=== PATIENT | female | born 1940 | race Caucasian/White ===

== ENCOUNTER → 2023-06-05 13:26 | Outpatient (REF) | payer OTHER, SELFPAY | LOC: RAD 13:26 | PROVIDERS: ATTENDING PHYSICIAN Surgery Vascular Surgery; FAMILY PHYSICIAN Family Medicine | DX: I72.8 Aneurysm of other specified arteries (principal) | CPT/HCPCS: 74174; Q9967 ==

== ENCOUNTER 2024-07-14 14:49 | Emergency (ER) | payer OTHER, SELFPAY ==
[2024-07-14 15:04] VITALS: BP 193/94
[2024-07-14 15:30] LABS: % Basophils 0.8 % (0-2); % Eosinophils 1.7 % (0-6); % Immature Granulocytes 0.2 % (0-0.5); % Lymphocytes 26.9 % (20.5-51.1); % Neutrophils 64.4 % (42.2-75.2); Absolute Basophils 0.1 10^3/uL (0-0.2); Absolute Eosinophils 0.1 10^3/uL (0-0.7); Absolute Lymphocytes 2.3 10^3/uL (1.2-3.4); Absolute Monocytes 0.5 10^3/uL (0.1-0.6); Absolute Neutrophils 5.4 10^3/uL (1.4-6.5); Hematocrit 44.8 % (37.0-47.0); Hemoglobin 15.1 g/dL (12.0-16.0); Mean Corp Hgb Conc. 33.7 g/dL (33.0-37.0); Mean Corpuscular Hgb 30.6 pg (27.0-31.0); Mean Corpuscular Volume 90.9 fL (81.0-99.0); Mean Platelet Volume 9.1 fL (7.4-10.4); Nucleated Red Blood Cells % 0 %; Platelet Count 329 10^3/uL (130-400); Red Blood Cell Count 4.93 10^6/uL (4.20-5.40); Red Cell Dist. Width 12.7 % (11.5-14.5); White Blood Cell Count 8.4 10^3/uL (4.8-10.8)
[2024-07-14 15:44] LABS: ALT (SGPT) 15 U/L (0-35); AST (SGOT) 23 U/L (14-36); Alkaline Phosphatase 62 U/L (38-126); Blood Urea Nitrogen 13 mg/dl (7-17); Calcium 9.9 mg/dl (8.4-10.2); Carbon Dioxide 27 mmol/L (22-30); Chloride 111 mmol/L (98-107); Glucose 106 mg/dl (70-99); Potassium 4.5 mmol/L (3.5-5.1); Sodium 146 mmol/L (135-145); Total Bilirubin 1.6 mg/dl (0.2-1.3); Total Protein 7.7 g/dl (6.3-8.2); eGFR > 60.00
[2024-07-14 15:50] LABS: Albumin 4.4 g/dl (3.5-5.0)
[2024-07-14 15:55] LABS: Troponin I < 0.012 ng/ml
[2024-07-14 16:03] LABS: Urine Albumin Negative (Neg - Trace); Urine Bilirubin Negative (Negative); Urine Character Clear (Clear); Urine Color Yellow; Urine Glucose Negative (Negative); Urine Ketone Negative (Negative); Urine Leukocyte 3+ (Negative); Urine Nitrite Negative (Negative); Urine Occult Blood Negative (Negative); Urine Urobilinogen Negative (Neg - 1+)
[2024-07-14 17:08] LABS: Urine Bacteria Few (Negative); Urine Red Blood Cell 0-2 /HPF (0-2); Urine White Cell 16-20 /HPF (0-5)
[2024-07-14 17:18] VITALS: BP 176/97
[2024-07-14 18:25] VITALS: BP 189/69
[2024-07-14 19:08] VITALS: BP 155/55
--- NOTE | 2024-07-14 19:49 | ED.GENMED ---
History of Present Illness
General
Chief Complaint: Blood Pressure Problem
Time Seen by Provider: 07/14/24 19:05
History of Present Illness
History of Present Illness:
84-year-old female with history of hypertension presenting to the emergency department for elevated blood pressure. Patient reports that she has been having ongoing symptoms of dizziness for the past year. Notes daily dizziness, lightheadedness,
has not followed with a primary care doctor. Notes negative CT of her head. She has been getting physical therapy, vestibular therapy back to [facility]. While at physical therapy today, reported that her blood pressure was elevated. At her
prior session, she was also told that her blood pressure was elevated. She is 1 blood pressure medication, for which she cannot remember. Reports compliance with this medication. Denies any recent adjustments of the medication. Denies any
present significant dizziness, lightheaded, headache, visual changes, chest breathing, weakness or numbness to extremities. She was sent in for evaluation of her high blood pressure. No additional symptoms reported at this time
Phy Exam
Physical Exam
Physical Exam:
General: Well-appearing, no clinical signs of dehydration, nontoxic and in no acute distress
HEENT: protecting airway, pupils equal and reactive
Neck: appears supple
CV: Normal heart rate, regular rhythm
Resp: No accessory muscle use, no increased work of breathing, lungs clear to auscultation bilaterally
Abd: No distention
Extremities: No deformities, no swelling
Neuro: alert, no focal neurologic deficit
: deferred
Rectal: deferred
Psych: Normal affect
Skin: Intact
Course
Orders/Labs/Results
Orders:
Orders
07/14/24 15:09
Electrocardiogram (*1) Urgent
Reason for Study: Chest Pain
EKG- Treatment ONCE
07/14/24 15:22
Complete Blood Count/With Diff Urgent
Comprehensive Metabolic Panel Urgent
Troponin I Urgent
Urinalysis Reflex To Culture Urgent
Date Specimen was Collected: 07/14/24
Time Specimen was Collected: 15:10
Urine Microscopic Reflex Cult Urgent
Urine Culture Urgent
EVANGELISTA Source: U
Specimen Description:
Date Specimen was Collected: 07/14/24
Time Specimen was Collected: 15:10
Abnormal Lab Results
07/14/24
15:22
Sodium 146 H mmol/L
(135-145)
Chloride 111 H mmol/L
(98-107)
Glucose 106 H mg/dl
(70-99)
Total Bilirubin 1.6 H mg/dl
(0.2-1.3)
Leukocyte Esterase Rfl 3+ A
(Negative)
Urine WBC (Reflex) 16-20 A /HPF
(0-5)
Urine Bacteria (Reflex) Few A
(Negative)
07/14/24 15:22
07/14/24 15:22
Vital Signs
Initial and Last Documented VS:
Initial Vital Signs
Temp Pulse Resp BP Pulse Ox
98.3 F 86 16 193/94 98
07/14/24 15:04 07/14/24 15:04 07/14/24 15:04 07/14/24 15:04 07/14/24 15:04
Last Documented Vital Signs
Temp Pulse Resp BP Pulse Ox
98.3 F 71 16 155/55 97
07/14/24 15:04 07/14/24 19:08 07/14/24 19:10 07/14/24 19:08 07/14/24 19:00
MDM/Problems Addressed
MDM/Problems Addressed:
84-year-old female with history of high blood pressure presenting for evaluation of elevated blood pressure. Vital signs on arrival are significant for high blood pressure.
On exam patient resting comfortably, currently asymptomatic. Does note ongoing dizziness, that has been present for the past year. At this time continue suspect vertiginous component to symptoms. No present focal neurologic deficits without
present concern for central neurologic process. EKG obtained on arrival, nonischemic, no arrhythmia. Prior to my assessment patient had laboratory analysis obtained, no signs of endorgan dysfunction. Without present concern for hypertensive
urgency or emergency. Blood pressure has improved in the emergency department. At this time, do not feel patient requires any emergent lowering of her blood pressure. Feel stable for discharge. However, did have long discussion with patient and
at bedside, advised calling primary care doctor tomorrow for follow-up appointment for blood pressure recheck and possible medication adjustment. Patient knows that she is only on 1 blood pressure medication that she takes once a day.
Patient agreed. Return discussed and patient verbalized understanding. Copies of her results provided.
*EKG
Interpreted by ED Provider?: Yes
EKG Intrepretation Date: 07/14/24
EKG Intrepretation Time: 19:51
Interpretation: normal
Comparison EKG: no changes (08/11/11)
Heart Rate: 81
Rate: normal
Rhythm: sinus
[place]: normal axis
Interval: normal interval
QRS Pattern: normal QRS
Ischemia: no ischemia
*Critical Care Note
Total Time (30-74mins, 75-104mins- exclusive of procedures): Not Applicable
ED Attending Note
-
Portions of this chart may have been created with voice recognition software.� Occasional wrong word or��sound alike� substitutions may have occurred due to the inherent limitations of voice recognition software.
Discharge Plan
Departure
Patient Disposition: Home (Routine Discharge)
Date of Disposition: 07/14/24
Time of Disposition: 19:48
Patient with high blood pressure during this ER visit?: Yes
Condition: Good
Discharge Problem:
Hypertension, Dizziness
Instructions: High Blood Pressure (DC), Dizziness in adults - ED discharge instructions
Referrals:
Edmund Juan MD [Family Provider] -
Activity Restrictions/Additional Instructions:
You were seen in the emergency department for high blood pressure
You were found to have a normal EKG and blood work. Your blood pressure improved in the emergency department. Please follow-up with your primary care doctor, call for an appointment for blood pressure recheck in possible adjustment of your
medications.
Return to the emergency department for any worsening of your symptoms, or any development of chest pain, difficulty breathing, abdominal pain with persistent vomiting and inability to tolerate food or liquid by mouth (concern for dehydration),
weakness, headache or confusion, fever greater than 100.4, or any additional symptoms that are concerning to you.
Thank you for choosing [facility].
Interventions
Interventions:
*Risk Screen - Suicide Last Done: 07/14/24 15:04
*Neglect/Abuse Screening Last Done: 07/14/24 15:04
*ED- Fall Risk Assessment Last Done: 07/14/24 19:49
*ED COVID-19 Vaccine History Last Done: 07/14/24 19:52
ED- Cardiac Assessment Last Done: 07/14/24 19:49
ED- Neurological Assessment Last Done: 07/14/24 19:49
ED- Pulmonary Assessment Last Done: 07/14/24 19:49
Discharge Date and Time
Print Language: THAI
== END 2024-07-14 20:04 | disposition home or self-care (01) ==
LOC: EMR 14:49
PROVIDERS: EMERGENCY PHYSICIAN Student in an Organized Health Care Education/Training Program; FAMILY PHYSICIAN Family Medicine
DX: I10 Essential (primary) hypertension (principal); R42 Dizziness and giddiness
CPT/HCPCS: 99283; 80053; 81003; 81015; 84484; 85025; 87086; 93005